=== PATIENT | male | born 1980 ===

== ENCOUNTER 2017-12-17 23:13 | Emergency (ER) | payer OTHER, MEDICAID ==
[2017-12-17 23:23] VITALS: BP 110/72; PULSE 72; RESP 20; TEMP 97.2; O2SAT 98
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
== END 2017-12-18 00:05 | disposition home or self-care (01) ==
LOC: C.ER 23:13
DX: S40.022A Contusion of left upper arm, initial encounter (principal); S09.90XA Unspecified injury of head, initial encounter; V29.88XA Motorcycle rider (driver) (passenger) injured in other specified transport accidents, initial encounter

== ENCOUNTER 2018-02-16 12:28 | Emergency (ER) | payer MEDICAID, OTHER ==
[2018-02-16 12:48] VITALS: BP 144/86; PULSE 83; RESP 18; TEMP 98.4; O2SAT 97
[2018-02-16] MEDS ORDERED: Bacitracin 500 Units/gm Oint Foilpak UD TOP ONE (13:14)
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
[2018-02-16] MEDS ORDERED: Bacitracin 500 Units/gm Oint Foilpak UD ONE (13:30)
== END 2018-02-16 13:33 | disposition home or self-care (01) ==
LOC: C.ER 12:28
DX: S50.811A Abrasion of right forearm, initial encounter (principal); W19.XXXA Unspecified fall, initial encounter; L03.90 Cellulitis, unspecified